=== PATIENT | male | born 1955 | race Caucasian/White ===

== ENCOUNTER → 2017-05-13 | Outpatient (CLI) | payer BC ==
[2017-05-13 10:37] LABS: Basophils % (A) 1 %; Eosinophils # (A) 0.2 k/uL (0-0.7); Eosinophils % (A) 3 %; HCT 42.6 % (39.0-53.0); HGB 14.1 gm/dL (13.0-17.5); Lymphocytes # (A) 1.6 k/uL (1.0-4.8); Lymphocytes % (A) 32 %; MCH 29.8 pg (25.0-35.0); MCV 90.1 fL (80.0-100.0); Monocytes # (A) 0.4 k/uL (0-1.0); Monocytes % (A) 8 %; Neutrophils # (A) 2.5 k/uL (1.3-7.7); Neutrophils % (A) 52 %; Platelet Count 245 k/uL (150-450); RBC 4.73 m/uL (4.30-5.90); RDW 12.7 % (11.5-15.5); WBC 4.9 k/uL (3.8-10.6)
== END | disposition home or self-care (01) ==
LOC: LABPAT 09:56
PROVIDERS: ATTEND Orthopaedic Surgery
DX: Z01.818 Encounter for other preprocedural examination (principal); Z01.812 Encounter for preprocedural laboratory examination; M75.42 Impingement syndrome of left shoulder
CPT/HCPCS: 36415; 80051; 85025; 93005

== ENCOUNTER 2017-05-20 06:41 | Day surgery (SDC) | payer BC ==
[2017-05-11 14:01] VITALS: BMI 31.5
--- NOTE | 2017-05-19 13:30 | HP ---
HISTORY AND PHYSICAL Surgery is 05/20/2017. Jona Palacios is a 61-year-old patient seen with progressive left shoulder pain. Treatment options were discussed. He elected to proceed with left shoulder arthroscopy. Consent regarding procedure was obtained. PAST MEDICAL HISTORY: Hypertension. PAST SURGICAL HISTORY: Noncontributory. DAILY MEDICATIONS: Ramipril. ALLERGIES: None reported. SOCIAL HISTORY: Patient denies current tobacco use. PHYSICAL EXAMINATION: PHYSICAL EVALUATION LEFT SHOULDER: Flexion 120 degrees. Abduction is 90 degrees, External rotation 70 degrees with some pain and weakness. Tenderness along the anterolateral acromion and rotator cuff insertion site. Impingement sign is positive at 90 degrees. Drop-arm sign is positive. Distal neurovascular exam is intact. Radiographs of the left shoulder revealed a type 2 anterior acromion. An MRI of left shoulder revealed rotator cuff tear, biceps tendon tear and labral tear. IMPRESSION: Left shoulder impingement with rotator cuff tear and labral tear. PLAN: Left shoulder arthroscopy with subacromial decompression probable arthroscopic rotator cuff repair, possible biceps tendon release and debridement. MMODL / IJN: [id number] /
[~2017-05-20 06:41] MED LIST: DEXAMETHASONE SOD PHOSPHATE 10 MG/ML 1 ML VIAL IV ONE; HYDROmorphone 0.5 MG/0.5 ML SYRINGE IVP PRN; LACTATED RINGERS 1,000 ML IV SCH; LIDOCAINE 1% 20 ML VIAL (10MG/ML) FOR IV START INTRADERMA PRN; ONDANSETRON 4 MG/2 ML VIAL IVP ONE; SCOPOLAMINE 1.5MG/72HR PATCH TRANSDERM ONE; ceFAZolin IN SWFI 2 GM/20 ML SYRINGE IVP ONE
[2017-05-20] MEDS ORDERED: MIDAZOLAM 2 MG/2 ML VIAL IV ONE (08:15)
[2017-05-20] MEDS ORDERED: MIDAZOLAM 2 MG/2 ML VIAL ONE (08:21)
[2017-05-20] MEDS ORDERED: BUPIVACAINE (PF) 0.5% 30 ML VIAL ONE (08:21)
[2017-05-20] MEDS ORDERED: PROPOFOL 10 MG/ML 20 ML VIAL IV ONE (08:21)
[2017-05-20] MEDS ORDERED: ePHEDrine SULFATE/0.9% NACL/PF 50 MG/5 ML SYRINGE IV ONE (08:21)
[2017-05-20] MEDS ORDERED: fentaNYL (PF) 50 MCG/ML 2 ML AMP ONE (08:21)
[2017-05-20] MEDS ORDERED: KETOROLAC 30 MG/ML 1 ML VIAL ONE (08:21)
[2017-05-20] MEDS ORDERED: ROPIVACAINE 5 MG/ML 30 ML VIAL ONE (08:21)
[2017-05-20] MEDS ORDERED: LIDOCAINE 1% INJ 10MG/ML (20 ML MDV) ONE (08:21)
[2017-05-20] MEDS ORDERED: LIDOCAINE 2% INJ 20 MG/ML (20 ML MDV) ONE (08:21)
[2017-05-20] MEDS ORDERED: LACTATED RINGERS 1,000 ML IV ONE (09:18)
--- NOTE | 2017-05-20 09:21 | P.ONQ ---
Anesthesiology Proc Note - PNB - Peripheral Nerve Block Performed Interscalene Time Out Performed: Yes Indication: Acute Post-Operative Pain, Dx/Pain Location (Left Shoulder) Sedation Type: Sedate with meaningful contact maintained Catheter: None Needle Types: Other (see comment) (Pajunk 50mm) Needle Gauge: 21 Technique: Ultrasound Injectate: 0.5% Ropivacaine (see comment for volume) (30cc and 2% lidocaine 10cc ) Blood Aspirated: No Pain Paresthesia on Injection Noted: No Resistance on Injection: Normal Events: Uneventful and Well Tolerated
[2017-05-20 10:05] VITALS: TEMP 98.2
--- NOTE | 2017-05-20 10:19 | P.OP ---
Date of Procedure: 05/20/17 Preoperative Diagnosis: Left shoulder impingement Postoperative Diagnosis: 1. Left shoulder rotator cuff tear 2. Left shoulder impingement 3. Left shoulder acromioclavicular joint osteoarthritis 4. Left shoulder superficial labral tear Procedure(s) Performed: 1. Left shoulder arthroscopic rotator cuff repair 2. Left shoulder arthroscopic subacromial decompression 3. Left shoulder arthroscopic Margi procedure 4. Left shoulder arthroscopic debridement labral tear Implants: 1-4.5 peek Anesthesia: GETA, regional (interscalene block) Surgeon: Dayday Art Mate Chief #1: Stanley Dominguez Estimated Blood Loss (ml): 10 Pathology: none sent Condition: stable Disposition: PACU Indications for Procedure: 61-year-old patient seen with progressive left shoulder pain. After treatment options were discussed, he elected to proceed with arthroscopy. Operative Findings: see description of procedure Description of Procedure: Patient underwent a shoulder block by department of anesthesia. The patient was then taken to the operative suite. The patient underwent a general anesthetic by the department of anesthesia. The patient was placed into a lateral position and secured. There was appropriate padding of the bony prominence. left shoulder was then prepped and draped in normal sterile orthopedic fashion. We placed the extremity in 10 pounds of longitudinal traction. A posterior incision was now made for a posterior working portal site. The trocar and cannula were inserted into the glenohumeral joint. Arthroscopy was initiated. Spinal needle was now inserted anteriorly, to ascertain the anterior working portal site. An incision was now made in that area, a trocar was inserted followed by a probe. there was some grade 1 chondromalacia changes of the glenoid. There was superficial tearing of the labrum. The biceps tendon was absent. I debrided the labral tear down to stable tissue. The residual labrum was probed and found to be stable. I couldn 't visualize a through and through anterior distal supraspinatus tendon tear. The subscapularis appeared without complete tear. Utilizing the posterior working portal site, the trocar and cannula were inserted into the subacromial space. Arthroscopy initiated. I made an incision 2 fingerbreadths lateral to the acromion. I introduced my trocar followed by my [employer] ablator. I now began ablating thick subacromial bursal tissue, which exposed the undersurface of the anterior acromion. This was diminished subacromial space. There was a very prominent anterior acromion. A motorized bur was introduced and a subacromial decompression was performed. I also excised some osteophytes off the inferior aspect of the distal clavicle. The AC joint was visualized and noted to be fairly arthritic. Our motorized bur was introduced in the anterior portal site and a Margi procedure was performed without difficulty, decompressing the AC joint nicely. I turned my attention to the rotator cuff. There was a 1.5 cm anterior distal supraspinatus tendon tear. there was some partial tearing of the subscapularis with no complete tear present. I debrided that anterior subscapularis tear down to stable tissue. The residual tendon was stable.I now debrided the margins of the anterior distal supraspinatus tendon tear down to stable tissue. I abraded the footprint with a motorized bur. I passed 2 everted mattress sutures through good bites of rotator cuff tendon.I repaired the tendon with one single 4.5 anchor compressing the tendon along the footprint nicely. The residual suture limbs were clipped. We had a good stable repair. I now injected 1 mL of renue intra-articular. Instruments now removed from the portal sites. All portal sites were approximated with nylon suture. Sterile dressings were applied followed by a shoulder immobilizer. Basilio LOPEZ assisted with the procedure. The patient was awakened, transferred to a bed, and taken to recovery in stable condition.
[2017-05-20 11:46] VITALS: BP 134/74; PULSE 72; RESP 16
== END 2017-05-20 11:55 | disposition home or self-care (01) ==
LOC: OR 06:41
PROVIDERS: ATTEND Orthopaedic Surgery
DX: M75.42 Impingement syndrome of left shoulder (principal); M19.012 Primary osteoarthritis, left shoulder; S43.402A Unspecified sprain of left shoulder joint, initial encounter; M94.212 Chondromalacia, left shoulder; M25.712 Osteophyte, left shoulder; X58.XXXA Exposure to other specified factors, initial encounter; I10 Essential (primary) hypertension; Z79.899 Other long term (current) drug therapy
CPT/HCPCS: 64415; 29826; 29827; 29824; C1713; C1765; J2001 ×2; J2250; J1100; J0690; J2405; J3010; J1885; J2795; J2704